=== PATIENT | male | born 1965 | race Caucasian/White ===

== ENCOUNTER 2016-11-21 08:51 | Day surgery (SDC) | payer OTHER ==
[2016-11-21] MEDS ORDERED: LACTATED RINGERS 1,000 ML ONE (09:08)
[2016-11-21] MEDS ORDERED: IV START KIT ONE (09:08)
[2016-11-21] MEDS ORDERED: PROPOFOL 40 ML IV ONE (10:10)
[2016-11-21] MEDS ORDERED: LACTATED RINGERS 1,000 ML IV SCH (11:00)
--- NOTE | 2016-11-23 10:09 | SURGPATH ---
[facility] [address] [place] [id number] Patient Name: CRISTINA GODINEZ MR#: [id number] : 1965 Gender: M Specimen #: [id number] Collected: 11/21/2016 Received: 11/22/2016 Reported: 11/23/2016 Submitting Phys: GA VARELA Copy To Phys: [facility] Clinical History / Pre-Operative Diagnosis: Surveillance colonoscopy, history of polyps Specimen Source / Surgical Procedure Performed: #1 transverse colon polypectomy, #2 sigmoid colon biopsy 25 cm Interpretation: 1. TRANSVERSE COLON, POLYP, BIOPSY: - TUBULAR ADENOMA 2. SIGMOID COLON, 25 CM, BIOPSY: - HYPERPLASTIC POLYP Electronically Signed Out Sera Dominguez M.D. Gross Description: 1. The specimen is received in formalin labeled with the patient's name and "transverse colon polyp". The specimen consists of a single fragment of solorzano soft tissue, 0.5 cm in greatest dimension. Submitted in toto in one cassette 2. The specimen is received in formalin labeled with the patient's name and "sigmoid colon". The specimen consists of a single fragment of solorzano soft tissue, 0.5 cm in greatest dimension. Submitted in toto in one cassette KASSI Faulkner Microscopic Description: 1. Sections show fragments of adenomatous colonic mucosa without high grade dysplasia. 2. Sections show fragments of hyperplastic colonic mucosa without dysplasia. 1: 25679 2: 28804 D12.3
== END 2016-11-21 11:59 | disposition home or self-care (01) ==
LOC: SDC 08:51
PROVIDERS: ATTEND Surgery
PROC: 0DBN8ZX Excision of Sigmoid Colon, Via Natural or Artificial Opening Endoscopic, Diagnostic (ICD-10-PCS; principal; 2016-11-21)
PROC: 0DBL8ZX Excision of Transverse Colon, Via Natural or Artificial Opening Endoscopic, Diagnostic (ICD-10-PCS; 2016-11-21)
DX: Z12.11 Encounter for screening for malignant neoplasm of colon (principal); D12.3 Benign neoplasm of transverse colon; K63.5 Polyp of colon; Z86.010 Personal history of colon polyps; Z83.71 Family history of colonic polyps